=== PATIENT | female | born 1935 | race Caucasian/White ===

== ENCOUNTER 2017-01-10 08:41 | Observation (INO) | payer MEDICARE, BC ==
[~2017-01-10] VITALS: Ht 157.5 cm; Wt 56.8 kg
[2017-01-10] VITALS (11 sets, daily range): BP systolic 119–1488; BP diastolic 45–65; PULSE 58–67; TEMP 98.1
[~2017-01-10 08:41] MED LIST: ALTACE 2.5MG T2.5 MG PO; AMBIEN 10MG10 MG PO; ASPIRIN 32325 MG/TAB PO; ASPIRIN 81M81 MG/TA2 PO; ASPIRIN E.C. 8181 MG PO; ATIVAN 0.50.5 MG/TAB PO; B-12500 MCG PO; CORGARD20 MG PO; CYMBALTA30 MG PO; CYMBALTA60 MG PO; ELITE MAGNESIUM1 TAB PO; EPA1000 MG PO; FISH OIL1000 MG PO; GEMCOR600 MG PO; IMDUR 60MG60 MG/TAB PO; IMDUR60 MG PO; KLONOPIN 0.5MG0.5 MG PO; LISINOPRIL2.5 MG PO; LIVALO4 MG PO; LOPRESSOR 225 MG/TAB PO; LOW DOSE ASPIRI81 MG PO; MAGNESIUM500 MG PO; MOTRIN PM 38 MG1 TAB PO; NADOLOL20 MG PO; NAPROSYN250 MG PO; NAPROXEN ER500 MG PO; NAPROXEN500 MG PO; NEXIUM 40MG40 MG PO; NITROQUICK0.4 MG SL; NITROSTAT0.4 MG/TAB SL; NORCO 325 MG-51 TAB PO; PERI-COLACE 501 TAB PO; PHENERGAN 25 TA25 MG PO; PLAVIX 75MG TAB75 MG PO; PRAVACHOL 20MG20 MG PO; RANEXA 500MG T500 MG PO; SENNA1 TAB PO; TENORMIN 2525 MG/TAB PO; TIMOPTIC 0.25%-5 OU; TYLENOL 325MG325 MG PO; UNSURE OF MEDS; VITAMIN B COMPL1 T16 PO; XALATAN EYE DROPS OU; ZOFRAN 4MG T4 MG/TAB PO; ZOFRAN4 M1 PO; ZOLPIDEM10 MG PO
[2017-01-10 09:02] LABS: BASO % 0.5 % (0.0-2.0); EOS % 0.4 % (0-4.0); GRAN # 4.9 (1.4-6.5); GRAN % 59.8 % (42.2-75.2); LYMPH # 2.8 (1.2-3.4); LYMPH % 34.1 % (20.0-51.0); MEAN CELL VOLUME 93 fl (80.0-100.0); MEAN CORPUSCULAR HGB CONC 33 g/dl (33.0-37.0); MEAN PLATELET VOLUME 8.6 fl (7.4-10.4); MONO # 0.4 (0.1-0.6); MONO % 4.8 % (1.7-9.3); PLATELET COUNT 215 K/mm3 (130-400); RED BLOOD COUNT 3.89 M/mm3 (4.10-5.30); REDCELL DISTRIBUTION WIDTH-CV 14.6 % (11.5-14.5); WHITE BLOOD COUNT 8.2 K/mm3 (4.8-10.8)
[2017-01-10 09:03] LABS: HEMOGLOBIN 11.9 g/dl (12.5-16.0); MEAN CORPUSCULAR HEMOGLOBIN 31 pg (27.0-31.0)
[2017-01-10 09:17] LABS: ADJUSTED CALCIUM 9.2 mg/dL (8.4-10.2); ALANINE AMINOTRANSFERASE 25 U/L (9-52); ALBUMIN 3.6 gm/dL (3.5-5.0); ALKALINE PHOSPHATASE 48 U/L (50-136); ANION GAP 9 mmol/L (7-16); BILIRUBIN,TOTAL 0.6 mg/dL (0.0-1.0); BLOOD UREA NITROGEN 13 mg/dL (7-17); CALCIUM 8.9 mg/dL (8.4-10.2); CARBON DIOXIDE 26 mmol/L (22-30); CHLORIDE 104 mmol/L (98-107); CREATININE, serum 0.71 mg/dL (0.52-1.25); GLUCOSE 146 mg/dL (74-106); LIPASE 89 U/L (23-300); SODIUM 139 mmol/L (137-145); TOTAL PROTEIN 6.4 gm/dL (6.4-8.2)
[2017-01-10 09:28] LABS: B-TYPE NATRIURETIC PEPTIDE 343 pg/mL (0-450)
[2017-01-10 09:29] LABS: TROPONIN-I < 0.012 ng/mL (0.000-0.034)
[2017-01-10] MEDS ORDERED: LIVALO4 MG PO (12:59)
== END 2017-01-10 18:10 | disposition home or self-care (01) ==
LOC: COL.ER 08:41 → MEDICAL 10:39
PROVIDERS: Emergency Medicine
DX: I25.119 Atherosclerotic heart disease of native coronary artery with unspecified angina pectoris (principal); E78.5 Hyperlipidemia, unspecified; I10 Essential (primary) hypertension
CPT/HCPCS: C1760; C1887; G0378; J2250; J3010; J7030; Q9967

== ENCOUNTER 2017-03-03 08:08 | Observation (INO) | payer MEDICARE, BC ==
[~2017-03-03] VITALS: Ht 157.5 cm; Wt 60.7 kg
[2017-03-03 08:32] VITALS: BP 106/58; PULSE 47
[2017-03-03 08:38] LABS: BASO % 0.6 % (0.0-2.0); EOS # 0.1 (0.0-0.7); EOS % 1.4 % (0-4.0); GRAN % 42.4 % (42.2-75.2); LYMPH # 3.4 (1.2-3.4); LYMPH % 48.9 % (20.0-51.0); MEAN CELL VOLUME 93 fl (80.0-100.0); MEAN CORPUSCULAR HGB CONC 32 g/dl (33.0-37.0); MEAN PLATELET VOLUME 8.8 fl (7.4-10.4); MONO # 0.5 (0.1-0.6); MONO % 6.4 % (1.7-9.3); PLATELET COUNT 211 K/mm3 (130-400); RED BLOOD COUNT 3.88 M/mm3 (4.10-5.30)
[2017-03-03 08:45] LABS: HEMATOCRIT 35.9 % (37.0-47.0); HEMOGLOBIN 11.6 g/dl (12.5-16.0); MEAN CORPUSCULAR HEMOGLOBIN 30 pg (27.0-31.0)
[2017-03-03 08:50] LABS: ANION GAP 9 mmol/L (7-16); BLOOD UREA NITROGEN 12 mg/dL (7-17); CALCIUM 8.5 mg/dL (8.4-10.2); CARBON DIOXIDE 26 mmol/L (22-30); CHLORIDE 102 mmol/L (98-107); CREATININE, serum 0.72 mg/dL (0.52-1.25); GLUCOSE 96 mg/dL (74-106); POTASSIUM 3.6 mmol/L (3.4-5.0); SODIUM 137 mmol/L (137-145)
[2017-03-03 08:51] LABS: C-REACTIVE PROTEIN < 0.5 mg/dL (0.0-0.9)
[2017-03-03 08:53] LABS: PH 5 (5-8); SQUAMOUS EPITHELIAL 0-2 /hpf; URINE APPEARANCE Clear; URINE BACTERIA None Seen /hpf; URINE BILIRUBIN Negative (NEGATIVE); URINE BLOOD Negative (NEGATIVE); URINE COLOR Amber; URINE GLUCOSE Negative (NEGATIVE); URINE KETONE Negative (NEGATIVE); URINE RBC 0-2 /hpf; URINE UROBILINOGEN Negative (NEGATIVE); URINE WBC 0-2 /hpf
[2017-03-03 09:02] LABS: TROPONIN-I < 0.012 ng/mL (0.000-0.034)
[2017-03-03 09:03] LABS: ERYTHROCYTE SEDIMENTATION RATE 15 mm/hr (0-30)
[2017-03-03 11:23] VITALS: BP 107/44; PULSE 50; TEMP 97
[2017-03-03 11:27] VITALS: BP 107/44; PULSE 48; TEMP 97
[2017-03-03 15:27] VITALS: BP 117/44; PULSE 65; TEMP 98.7
[2017-03-03 19:16] VITALS: BP 121/42; PULSE 61; TEMP 98.3
[2017-03-03 23:24] VITALS: BP 124/43; PULSE 72; TEMP 98.5
[2017-03-04] VITALS (8 sets, daily range): BP systolic 115–167; BP diastolic 43–74; PULSE 60–72; TEMP 97.5–98.4
[2017-03-04 07:46] LABS: MEAN CELL VOLUME 92 fl (80.0-100.0); MEAN CORPUSCULAR HGB CONC 33 g/dl (33.0-37.0); MEAN PLATELET VOLUME 9.1 fl (7.4-10.4); PLATELET COUNT 195 K/mm3 (130-400); RED BLOOD COUNT 3.72 M/mm3 (4.10-5.30); REDCELL DISTRIBUTION WIDTH-CV 13.9 % (11.5-14.5); WHITE BLOOD COUNT 6.3 K/mm3 (4.8-10.8)
[2017-03-04 07:48] LABS: HEMOGLOBIN 11.3 g/dl (12.5-16.0); MEAN CORPUSCULAR HEMOGLOBIN 30 pg (27.0-31.0); PROTHROMBIN TIME 10.9 SECONDS (9.7-12.8)
[2017-03-04 07:49] LABS: HEMATOCRIT 34.3 % (37.0-47.0)
[2017-03-04 07:51] LABS: PARTIAL THROMBOPLASTIN TIME 26.7 SECONDS (26.0-37.0)
[2017-03-04 08:07] LABS: CALCIUM 8.6 mg/dL (8.4-10.2); CREATININE, serum 0.68 mg/dL (0.52-1.25); POTASSIUM 3.7 mmol/L (3.4-5.0)
[2017-03-05 02:35] VITALS: BP 129/55; PULSE 66; TEMP 98.3
[2017-03-05 07:58] VITALS: BP 132/48; PULSE 71; TEMP 97.7
[2017-03-05 08:30] VITALS: BP 132/48; PULSE 71; TEMP 97.7
[2017-03-05] MEDS ORDERED: LOPRESSOR 225 MG/TAB PO (10:39)
== END 2017-03-05 12:06 | disposition home or self-care (01) ==
LOC: COL.ER 08:08 → MEDICAL 09:32
PROVIDERS: Emergency Medicine; Internal Medicine Interventional Cardiology
DX: I25.110 Atherosclerotic heart disease of native coronary artery with unstable angina pectoris (principal); K21.9 Gastro-esophageal reflux disease without esophagitis; E78.5 Hyperlipidemia, unspecified; F41.9 Anxiety disorder, unspecified; D64.9 Anemia, unspecified; R00.1 Bradycardia, unspecified; Z79.01 Long term (current) use of anticoagulants; Z87.820 Personal history of traumatic brain injury; Z95.5 Presence of coronary angioplasty implant and graft; Z90.710 Acquired absence of both cervix and uterus; Z85.828 Personal history of other malignant neoplasm of skin
CPT/HCPCS: C1760; C1769; C1887; G0378; J0153; J1644; J2250; J3010; J7030; Q9967

== ENCOUNTER 2017-04-04 10:12 | Emergency (ER) | payer MEDICARE, BC ==
[~2017-04-04] VITALS: Ht 157.5 cm; Wt 56.8 kg
[2017-04-04 10:14] VITALS: BP 150/69; TEMP 97.8
[2017-04-04 12:40] VITALS: PULSE 62
== END 2017-04-04 13:17 | disposition home or self-care (01) ==
LOC: COL.ER 10:12
DX: M79.605 Pain in left leg (principal); Z98.890 Other specified postprocedural states; I73.9 Peripheral vascular disease, unspecified; I25.10 Atherosclerotic heart disease of native coronary artery without angina pectoris; Z95.5 Presence of coronary angioplasty implant and graft; Z79.02 Long term (current) use of antithrombotics/antiplatelets; Z95.820 Peripheral vascular angioplasty status with implants and grafts

== ENCOUNTER → 2017-05-29 | Outpatient (CLI) | payer MEDICARE, BC ==
[2017-05-29 17:13] LABS: MEAN CELL VOLUME 89 fl (80.0-100.0); MEAN CORPUSCULAR HGB CONC 32 g/dl (33.0-37.0); MEAN PLATELET VOLUME 8.6 fl (7.4-10.4); PLATELET COUNT 259 K/mm3 (130-400); RED BLOOD COUNT 3.97 M/mm3 (4.10-5.30); REDCELL DISTRIBUTION WIDTH-CV 14.6 % (11.5-14.5); WHITE BLOOD COUNT 11.3 K/mm3 (4.8-10.8)
[2017-05-29 17:23] LABS: HEMATOCRIT 35.3 % (37.0-47.0); HEMOGLOBIN 11.4 g/dl (12.5-16.0); MEAN CORPUSCULAR HEMOGLOBIN 29 pg (27.0-31.0)
[2017-05-29 17:30] LABS: CALCIUM 8.7 mg/dL (8.4-10.2); CREATININE, serum 0.72 mg/dL (0.52-1.25); MAGNESIUM 1.9 mg/dL (1.6-2.3); PHOSPHOROUS 4.1 mg/dL (2.5-4.5); POTASSIUM 3.5 mmol/L (3.4-5.0)
[2017-05-29 17:54] LABS: ERYTHROCYTE SEDIMENTATION RATE 18 mm/hr (0-30)
[2017-05-29 18:01] LABS: THYROID STIMULATING HORMONE 0.583 uIU/mL (0.465-4.680)
== END ==
LOC: COL.LAB 16:16
PROVIDERS: Internal Medicine Interventional Cardiology
DX: R53.1 Weakness (principal); R53.82 Chronic fatigue, unspecified

== ENCOUNTER → 2020-12-20 | Outpatient (CLI) | payer MEDICARE, BC | LOC: COL.RAD 10:21 | DX: E04.2 Nontoxic multinodular goiter (principal); R79.89 Other specified abnormal findings of blood chemistry | CPT/HCPCS: A9516 ==